=== PATIENT | male | born 1955 | race African-American/Black ===

== ENCOUNTER 2016-11-23 07:58 | Day surgery (SDC) | payer MEDICARE ==
[2016-11-23] MEDS ORDERED: OXYCODONE-ACETAMINOPHEN 5-325 MG TABLET ONE (08:39)
[2016-11-23] MEDS ORDERED: LIDOCAINE 0.5% INJ-PF (5 MG/ML) 50 ML SDV ONE (08:59)
[2016-11-23] MEDS ORDERED: DIAZEPAM 5 MG TABLET PO ONE (09:00)
[2016-11-23] MEDS ORDERED: FENTANYL CITRATE INJ/PF 100 MCG/2 ML AMPUL ONE (09:20)
[2016-11-23] MEDS ORDERED: MIDAZOLAM 2 MG/2 ML INJ ONE (09:20)
[2016-11-23] MEDS ORDERED: HEPARIN SOD (PORCINE) 5,000 UNIT/ML 1 ML SYRINGE ONE (09:21)
--- NOTE | 2016-11-23 11:28 | PDOC DISCHARGE SUMMARY ---
Discharge Summary (SDC) - Discharge Final Diagnosis: #1 malfunctioning AV fistula, right forearm radial to cephalic. #2 end-stage renal disease on hemodialysis. #3 hypertension. Date of Surgery: 11/23/16 Discharge Date: 11/23/16 Condition: Good Treatment or Instructions: #1 activities within moderation encouraged. #2 follow up in my office by appointment in about 1 month. Call for appointment. #3 the wounds covered clean and dry until removed and dialysis. #4 hold off on school/work until evaluation in office. #5 medications per medication reconciliation sheet. #6 discharge from ambulatory when ASU criteria met. #7 renal diet, as tolerated. Report the Following to Your Physician Immediately: Unusual Bleeding
[2016-11-23 12:17] VITALS: BP 153/106
--- NOTE | 2016-11-23 14:11 | PDOC H&P ---
General Chief Complaint: The patient is admitted for intervention in his arteriovenous fistula. Reduced flows have been appreciated on hemodialysis. - Current Medications/Allergies Home Medications: Amlodipine Besylate [Norvasc 10 mg Tablet] 10 mg PO QHS 08/14/12 Cinacalcet HCl [Sensipar 30 mg Tablet] 60 mg PO DAILY 03/20/13 Irbesartan [Avapro] 150 mg PO QHS 03/17/15 Lanthanum Carbonate [Fosrenol] 1,500 mg PO TID 03/17/15 Allergies/Adverse Reactions: lisinopril [Lisinopril] Allergy (Unknown, Verified 05/08/13 16:39) Past Medical History Cardiac Medical History: Reports: Hypertension Denies: Coronary Artery Disease, Myocardial Infarction Pulmonary Medical History: Denies: Asthma, Bronchitis, Chronic Obstructive Pulmonary Disease (COPD), Pneumonia - "TOUCH OF THE PNEUMONIA", Tuberculosis Neurological Medical History: Denies: Seizures Renal/ Medical History: Reports: End Stage Renal Disease Musculoskeltal Medical History: Denies: Arthritis Hematology: Denies: Anemia Past Surgical History Past Surgical History: Reports: Vascular Surgery - dialysis fistula Denies: Pacemaker Family History Family History: Reviewed & Not Pertinent Parental Family History Reviewed: No Children Family History Reviewed: No Sibling(s) Family History Reviewed.: No Social History Smoking Status: Current Every Day Smoker Frequency of Alcohol Use: None Hx Recreational Drug Use: No Hx Prescription Drug Abuse: No Physical Exam Vital Signs: Temp Pulse Resp BP Pulse Ox 98.3 F 74 18 153/106 H 100 11/23/16 12:15 11/23/16 12:15 11/23/16 12:15 11/23/16 12:15 11/23/16 12:15 Intake & Output 11/22/16 11/23/16 11/24/16 06:59 06:59 06:59 Weight 79.379 kg Additional comments: Constitutional: A well-developed well-nourished -[place] gentleman. No acute distress. Eyes: Mucous membranes pink and moist, sclerae anicteric, pupils react normally. Respiratory: No shortness of breath or wheezing. Breath sounds are normal and equal. Cardiac: Heart sounds normal, no murmurs, no increased JVP. Peripheral edema. Extremities: Upper extremities shows normal range of movement and pulses. The right arm has a cephalic to radial fistula which is aneurysmal. Bruit normal. Soft to palpation. Psychiatric: judgment, memory, insight seem normal. Mood is normal, appropriate and pleasant. Impression/Plan Impression: #1 malfunctioning AV fistula, right forearm cephalic to radial. #2 end-stage renal disease on hemodialysis. #3 hypertension. Plan: The plan in this patient is to access the fistula do an angiogram and possible angioplasty. Risks include infection, bleeding, heart, lung complications, loss of fistula. The patient is agreeable to proceed.
--- NOTE | 2016-11-23 14:15 | Operative Report ---
Operative Report DATE OF SURGERY: 11/23/16 PREOPERATIVE DIAGNOSIS: #1 malfunctioning AV fistula, right forearm cephalic to radial. #2 end-stage renal disease on hemodialysis. #3 hypertension. POSTOPERATIVE DIAGNOSIS: #1 malfunctioning AV fistula, right forearm cephalic to radial. #2 end-stage renal disease on hemodialysis. #3 hypertension. OPERATION: #1 needle access into fistula. #2 angioplasty. #3 angiogram and interpretation. SURGEON: KARON PARMAR INFANT LEAD TEACHER: none ANESTHESIA: Moderate Sedation TISSUE REMOVED OR ALTERED: Not applicable. COMPLICATIONS: None ESTIMATED BLOOD LOSS: 5 mL. INTRAOPERATIVE FINDINGS: Of a well-founded right arm radiocephalic fistula. Very well dilated. Soft after the first 4 cm suggesting a stenosis which in fact was found at about 4 cm. Angioplasty vastly improve the quality of the fistula. Stenosis relatively modest at about 60% of the adjacent lumen. Much improved with angioplasty. PROCEDURE: PROCEDURE: After verifying the procedure and having obtained informed consent, the patient's right forearm was prepared with Chlorhexidine and draped out with sterile linen. Local anesthesia infiltrated. Percutaneous access into the fistula ,[ antegrade], obtained about [2 cm] from the arteriovenous anastomosis using a micro puncture needle followed by micro puncture wire and then a micro puncture catheter. Angiogram demonstrated the aforementioned findings. Angioplasty was elected. A 0.035 Henderson wire was inserted, and over this, a 6 Solomon Islander short introducer was placed, this was followed by a [6] angioplasty balloon . Angioplasty was serially done from the culprit area down to the introducer. Inflating up to 14 atmospheres for 1-2 minutes at a time.]. Completion angiogram demonstrated [satisfactory result]. The instrumentation was now withdrawn over pressure for 10 minutes. Dressings applied, procedure concluded. Exposure time: 0.4 minutes Radiation: 31 Faustin per centimeter squared Contrast: 25 mm of Isovue-M 300, low osmolality. DICTATING PHYSICIAN: KARON MELO M.D. cc: KARON MELO M.D. ([id number]) >>
== END 2016-11-23 12:15 | disposition home or self-care (01) ==
LOC: CCL 07:58
PROVIDERS: ATTEND Surgery
PROC: 057D3DZ Dilation of Right Cephalic Vein with Intraluminal Device, Percutaneous Approach (ICD-10-PCS; principal; 2016-11-23)
DX: T82.858A Stenosis of other vascular prosthetic devices, implants and grafts, initial encounter (principal); Y83.2 Surgical operation with anastomosis, bypass or graft as the cause of abnormal reaction of the patient, or of later complication, without mention of misadventure at the time of the procedure; I12.0 Hypertensive chronic kidney disease with stage 5 chronic kidney disease or end stage renal disease; N18.6 End stage renal disease; F17.210 Nicotine dependence, cigarettes, uncomplicated; Z99.2 Dependence on renal dialysis; Z88.8 Allergy status to other drugs, medicaments and biological substances; Z79.899 Other long term (current) drug therapy
CPT/HCPCS: 36902; 36901; C1752; C1725; C1894; Q9967; C1769; J2250; J1644 ×2; A9270 ×2; J3010; J3490

== ENCOUNTER 2018-07-26 02:17 | Emergency (ER) | payer MEDICARE, MEDICAID ==
[2018-07-26] MEDS ORDERED: LIDOCAINE 1% INJ-PF (10 MG/ML) 30 ML SDV INJ ONE (02:57)
--- NOTE | 2018-07-26 03:08 | ER Document Report ---
ED General - General Mode of Arrival: Ambulatory Information source: Patient TRAVEL OUTSIDE OF THE [place] IN LAST 30 DAYS: No - General Chief Complaint: Abscess Stated Complaint: POSSIBLE SKIN SORES Time Seen by Provider: 07/26/18 02:38 Notes: Patient is a 8-year-old male who presents to the emergency department with a 1-1 /2-week history of abscesses 2 of which are on his scrotum and one that is on his anterior neck. He denies any fever, chills, body aches. He states that he does have localized pain in the areas of his abscesses, but denies any radiation of his pain. The 2 abscesses on his scrotum have drained a small amount of "white" drainage on their own, per patient. (MARI HERNANDEZ) - Related Data Allergies/Adverse Reactions: lisinopril [Lisinopril] Allergy (Unknown, Verified 05/08/13 16:39) Past Medical History - General Information source: Patient - Social History Smoking Status: Current Some Day Smoker Frequency of alcohol use: None Drug Abuse: None Lives with: Family Family History: Reviewed & Not Pertinent Patient has suicidal ideation: No Patient has homicidal ideation: No - Past Medical History Cardiac Medical History: Reports: Hx Hypertension Denies: Hx Coronary Artery Disease, Hx Heart Attack Pulmonary Medical History: Denies: Hx Asthma, Hx Bronchitis, Hx COPD, Hx Pneumonia - "TOUCH OF THE PNEUMONIA", Hx Tuberculosis Neurological Medical History: Denies: Hx Cerebrovascular Accident, Hx Seizures Renal/ Medical History: Reports: Hx End Stage Renal Disease. Denies: Hx Peritoneal Dialysis - Hemodialysis due today 0700 Musculoskeletal Medical History: Denies Hx Arthritis Past Surgical History: Reports: Hx Vascular Surgery - dialysis fistula. Denies : Hx Pacemaker - Immunizations Hx Diphtheria, Pertussis, Tetanus Vaccination: Yes Review of Systems - Review of Systems Constitutional: See HPI EENT: No symptoms reported Cardiovascular: No symptoms reported Respiratory: No symptoms reported Gastrointestinal: No symptoms reported Genitourinary: No symptoms reported Male Genitourinary: See HPI Musculoskeletal: No symptoms reported Skin: See HPI Hematologic/Lymphatic: No symptoms reported Neurological/Psychological: No symptoms reported Physical Exam - General General appearance: Appears well - Respiratory Respiratory status: No respiratory distress Breath sounds: Normal - Genitourinary Scrotum: Swelling - Skin Skin Temperature: Warm Skin Moisture: Dry Skin Color: Normal, Ashen Skin irregularity: Abscess - Anterior neck; 2 noted on right scrotum - Vital signs Vitals: Temp Pulse Resp BP Pulse Ox 98.6 F 93 16 142/91 H 98 07/26/18 02:26 07/26/18 02:26 07/26/18 02:26 07/26/18 02:26 07/26/18 02:26 Course - Re-evaluation Re-evalutation: 07/26/18 03:00 Patient is a 62-year-old male with a past medical history of dialysis, who presents to the emergency department with multiple abscesses, one in which is on his anterior neck and 2 others that are on his scrotum. His abscesses started a week and a half ago. He denies fever, chills, or malaise. 07/26/18 03:[address] Bethea in regards to his scrotal swelling and abscesses. He will assess the patient and determine if Dr. Gaston, the surgicalist needs to be consulted. 07/26/18 03:38 Dr. Bethea and myself at bedside to drain abscesses. Patient tolerated procedure well. Verbal instructions for patient to return to the emergency department tomorrow for follow-up. (MARI HERNANDEZ) 07/26/18 05:22 Patient has 2 small sores on the scrotal region. 1 of the sores is less than 1 cm in diameter in the usual have just a small purulent core. Was able to do the roof both of these with an 18-gauge needle. Before doing this I did clean the areas with chlorhexidine. We then irrigated there is saline. There is no further incision or drainage at this time as there is no further abscess on exam. He also had a small one on his neck which was also removed with a 18- gauge needle also has just a small pustule. We will have the patient return tomorrow for reevaluation of the scrotal region. We did place Xeroform gauze over the wounds. Patient to return to ER sooner if he has increasing swelling, fevers, or feels unwell. Patient agrees with plan and will be discharged home. Dictation of this chart was performed using voice recognition software; therefore, there may be some unintended grammatical errors. (RIVAS BETHEA) - Vital Signs Vital signs: Temp Pulse Resp BP Pulse Ox 98.5 F 90 18 142/82 H 99 07/26/18 04:11 07/26/18 04:11 07/26/18 04:11 07/26/18 04:11 07/26/18 04:11 Discharge - Discharge Clinical Impression: ESRD on dialysis, Abscess of multiple sites Condition: Stable Disposition: HOME, SELF-CARE Instructions: Abscess ([facility]), MRSA Cellulitis ([facility]) Additional Instructions: Please follow-up in the emergency department tomorrow to have your abscesses reevaluated and dressings changed. Please take all your antibiotics as prescribed and finish them. If you feel your abscesses are getting worse, please return to the emergency department immediately. If you develop a fever, body aches, chills, please return to the emergency department as soon as possible. Prescriptions: Cephalexin Monohydrate [Keflex 500 mg Capsule] 500 mg PO Q6H 7 Days #28 capsule Sulfamethoxazole/Trimethoprim [Bactrim Ds Tablet] 1 each PO BID 7 Days #14 tablet Referrals: Magy ROSARIO MD [Primary Care Provider] - Follow up as needed
[2018-07-26 04:13] VITALS: BP 142/82
== END 2018-07-26 04:14 | disposition home or self-care (01) ==
LOC: ER 02:17
DX: N49.2 Inflammatory disorders of scrotum (principal); L02.11 Cutaneous abscess of neck; I12.0 Hypertensive chronic kidney disease with stage 5 chronic kidney disease or end stage renal disease; N18.6 End stage renal disease; Z99.2 Dependence on renal dialysis; F17.200 Nicotine dependence, unspecified, uncomplicated; Z88.8 Allergy status to other drugs, medicaments and biological substances
CPT/HCPCS: 99283

== ENCOUNTER 2018-07-27 03:58 | Emergency (ER) | payer MEDICARE, MEDICAID ==
--- NOTE | 2018-07-27 04:22 | ER Document Report ---
ED General - General Chief Complaint: Wound Recheck Stated Complaint: WOUND CHECK Time Seen by Provider: 07/27/18 04:13 Notes: Patient is a pleasant 62-year-old male who presents with complaint of wanting reevaluation for his size abscesses. I saw the patient yesterday in size at 2 abscesses on his scrotal region as well as one in his lower neck. Encouraged him to return today for reevaluation as the patient did not follow instructions appropriately. He says he has been doing well. He has not had any further concerns. He has not had any increasing swelling. He says he is feeling improved. He has filled the prescription for his antibiotic and has been taking it. TRAVEL OUTSIDE OF THE [place] IN LAST 30 DAYS: No - Related Data Allergies/Adverse Reactions: lisinopril [Lisinopril] Allergy (Unknown, Verified 07/27/18 04:00) Past Medical History - Social History Smoking Status: Unknown if Ever Smoked Frequency of alcohol use: None Drug Abuse: None Family History: Reviewed & Not Pertinent - Past Medical History Cardiac Medical History: Reports: Hx Hypertension Denies: Hx Coronary Artery Disease, Hx Heart Attack Pulmonary Medical History: Denies: Hx Asthma, Hx Bronchitis, Hx COPD, Hx Pneumonia - "TOUCH OF THE PNEUMONIA", Hx Tuberculosis Neurological Medical History: Denies: Hx Cerebrovascular Accident, Hx Seizures Renal/ Medical History: Reports: Hx End Stage Renal Disease. Denies: Hx Peritoneal Dialysis - Hemodialysis due today 0700 Musculoskeletal Medical History: Denies Hx Arthritis Past Surgical History: Reports: Hx Vascular Surgery - dialysis fistula. Denies : Hx Pacemaker - Immunizations Hx Diphtheria, Pertussis, Tetanus Vaccination: Yes Review of Systems - Review of Systems Notes: My Normal Review Basic REVIEW OF SYSTEMS: CONSTITUTIONAL : Denies fever, chills, or sweats. Denies recent illness. EENT: Small abscess at base of anterior neck. GASTROINTESTINAL: Denies abdominal pain. Denies nausea, vomiting, or diarrhea. GENITOURINARY: 2 small abscesses over scrotal region. SKIN: Denies rash or skin lesions. NEUROLOGICAL: Denies sensory or motor loss. ALL OTHER SYSTEMS REVIEWED AND NEGATIVE. Physical Exam - Vital signs Vitals: Temp Pulse Resp BP Pulse Ox 98.5 F 91 16 131/81 H 99 07/27/18 04:09 07/27/18 04:09 07/27/18 04:09 07/27/18 04:09 07/27/18 04:09 - Notes Notes: General Appearance: Well nourished, alert, cooperative, no acute distress, no obvious discomfort. Well-appearing. Vitals: reviewed, See vital signs table. Eyes: PERRL, EOMI, Conjuctiva clear Neck: Supple, very small abscess over the base of the anterior neck which has been deroofed yesterday. There is no ongoing purulent drainage. There is no increasing swelling. Appears to be healing appropriate. Genital: 2 small abscesses on the scrotal region are healing appropriately without further purulent drainage. No surrounding erythema or spreading redness. Skin: warm, dry, appropriate color, no rash Neuro: speech clear, oriented x 3, normal affect, responds appropriately to questions. Course - Re-evaluation Re-evalutation: 07/27/18 06:34 Patient's sized abscesses are healing appropriately and patient looks well. We will have him continue take doxycycline. I informed him to clean his wounds with soap and water twice a day and place any bandages over them. Patient to return to ER if he has recurrent purulent drainage, spreading redness or swelling, fevers, or if he feels his symptoms are worsening in any way. Patient agrees with plan will be discharged home. Dictation of this chart was performed using voice recognition software; therefore, there may be some unintended grammatical errors. - Vital Signs Vital signs: Temp Pulse Resp BP Pulse Ox 98.7 F 90 20 128/89 H 99 07/27/18 04:41 07/27/18 04:41 07/27/18 04:41 07/27/18 04:41 07/27/18 04:41 Discharge - Discharge Clinical Impression: Abscess of multiple sites Condition: Good Disposition: HOME, SELF-CARE Additional Instructions: Please clean the incised abscesses twice a day with soap and water and apply new bandaids. Continue to take your antibiotic as prescribed. Please return to the ER immediately if you develop fevers, increasing swelling, spreading redness , or feel unwell. Referrals: Magy ROSARIO MD [Primary Care Provider] - 07/31/18
[2018-07-27 04:43] VITALS: BP 128/89
== END 2018-07-27 04:43 | disposition home or self-care (01) ==
LOC: ER 03:58
DX: L02.11 Cutaneous abscess of neck (principal); N49.2 Inflammatory disorders of scrotum
CPT/HCPCS: 99282

== ENCOUNTER → 2020-04-08 | Outpatient (CLI) | payer MEDICAID, MEDICARE ==
--- NOTE | 2020-04-08 18:26 | XCELERA REPORT ---
[address] [address] Transthoracic Echocardiogram Report Name: RAQUEL SCHWARTZ Age: 64 yrs Gender: Male : 1955 Patient Status: Outpatient Patient Location: [facility] Study Date: 04/08/2020 09:14 AM Height: 71 in Weight: 182 lb BSA: 2.0 m2 Reason For Study: HYPOTENSION Ordering Physician: ROMULO DIETRICH Performed By: Patrice Caldreon Interpretation Summary Minimal posterior pericardial effusion. Mild aortic root calcification, no enlargement. Mild nonstenotic calcific aortic valvular disease? 3 cusps, with minimal AR, no LV enlargement. Severe mitral annular calcification with thickened anterior and posterior mitral leaflets, no stenosis,, No MVP, mild mitral regurgitation. No left atrial enlargement, JASON is 27. LV shows apical hypertrophy, LVEF is 65% with moderate concentric basal LV hypertrophy 15-16 mm, with left ventricular diastolic dysfunction stage I. Hypokinesis is seen in the basal anterior wall and basal lateral wall only. There is no LV enlargement. No LVOT obstruction. Right heart is poorly seen, no suspicion of RV or RA enlargement, TAPSE suggests normal RE function. Mild TR with RVSP less than 30, ie, no pulmonary hypertension. This patient's LV contractility is hyperdynamic, therefore suggest hypovolemia as cause for his hypotension while on dialysis. MMode/2D Measurements & Calculations RVDd: 3.0 cm LVIDd: 5.3 cm FS: 43.2 % Ao root diam: 3.5 cm IVSd: 1.1 cm LVIDs: 3.0 cm EDV(Teich): Ao root area: LVPWd: 1.0 cm 133.4 ml ESV(Teich): 34.8 ml9.9 cm2 LA dimension: 5.2 cm EF(Teich): 73.9 % LVLd ap4: 8.4 cm SV(MOD-sp4): EDV(MOD-sp4): 48.0 ml 85.0 ml LVLs ap4: 7.5 cm ESV(MOD-sp4): 37.0 ml EF(MOD-sp4): 56.5 % Doppler Measurements & Calculations MV E max loki: MV P1/2t max loki: Ao V2 max: LV V1 max P.4 cm/sec 79.9 cm/sec 156.7 cm/sec 4.4 mmHg MV A max loki: MV P1/2t: 105.8 msec Ao max P.8 mmHgLV V1 max: 121.9 cm/sec 104.6 cm/sec MV E/A: 0.70 MVA(P1/2t): 2.1 cm2 MV dec slope: 221.3 cm/sec2 MV dec time: 0.28 sec PA V2 max: TR max loki: MV P1/2t-pr_phl: 112.0 cm/sec 247.0 cm/sec 105.8 msec PA max P.0 mmHgTR max P.4 mmHg I WMSI = 1.13 % Normal = 88 Segments Size X - Cannot 1 - Normal 2 - 3 - Akinetic4 - 1-2 small Interpret Hypokinetic Dyskinetic 3-5 moderate 5 - 6-14 large Aneurysmal 15-16 diffuse : ROMULO DIETRICH Andre
== END ==
LOC: SP 08:25
PROVIDERS: ATTEND Internal Medicine Nephrology
DX: I95.89 Other hypotension (principal)
CPT/HCPCS: 93306

== ENCOUNTER 2020-05-24 15:42 | Emergency (ER) | payer MEDICARE, MEDICAID ==
--- NOTE | 2020-05-24 17:09 | ER Document Report ---
ED Medical Screen (RME) - General Stated Complaint: ABSCESS Time Seen by Provider: 05/24/20 17:05 Primary Care Provider: ROMULO DIETRICH MD [Primary Care Provider] - Follow up as needed Notes: HPI: 64-year-old male who is a dialysis patient presenting for an abscess on the scrotum. States it is been present for 3 to 4 days progressively worsening. States he had one in this region previously that had to be drained. PHYSICAL EXAMINATION: There are career development coordinator present. exam shows an indurated mildly fluctuant area measuring 3 cm x 2 cm over the central anterior scrotum at the base of the penis I have greeted and performed a rapid initial assessment of this patient. A comprehensive ED assessment and evaluation of the patient, analysis of test results and completion of medical decision making process will be conducted by an additional ED providers. TRAVEL OUTSIDE OF THE [place] IN LAST 30 DAYS: No - Related Data Allergies/Adverse Reactions: lisinopril [Lisinopril] Allergy (Unknown, Verified 05/24/20 17:04) Past Medical History - Past Medical History Cardiac Medical History: Reports: Hx Hypertension Denies: Hx Coronary Artery Disease, Hx Heart Attack Pulmonary Medical History: Denies: Hx Asthma, Hx Bronchitis, Hx COPD, Hx Pneumonia - "TOUCH OF THE PNEUMONIA", Hx Tuberculosis Neurological Medical History: Denies: Hx Cerebrovascular Accident, Hx Seizures Renal/ Medical History: Reports: Hx End Stage Renal Disease. Denies: Hx Peritoneal Dialysis - Hemodialysis due today 0700 Musculoskeltal Medical History: Denies Hx Arthritis Past Surgical History: Reports: Hx Vascular Surgery - dialysis fistula. Denies: Hx Pacemaker - Immunizations Hx Diphtheria, Pertussis, Tetanus Vaccination: Yes Physical Exam - Vital signs Vitals: Temp Pulse Resp BP Pulse Ox 98.6 F 114 H 20 111/64 96 05/24/20 15:47 05/24/20 15:47 05/24/20 15:47 05/24/20 15:47 05/24/20 15:47 Course - Vital Signs Vital signs: Temp Pulse Resp BP Pulse Ox 98.6 F 114 H 20 111/64 96 05/24/20 15:47 05/24/20 15:47 05/24/20 15:47 05/24/20 15:47 05/24/20 15:47 Doctor's Discharge - Discharge Referrals: ROMULO DIETRICH MD [Primary Care Provider] - Follow up as needed
[2020-05-24] MEDS ORDERED: CEPHALEXIN 500 MG CAPSULE PO ONE (19:59)
[2020-05-24] MEDS ORDERED: SULFAMETHOXAZOLE/TRIMETHOPRIM 800-160 MG TABLET PO ONE (19:59)
--- NOTE | 2020-05-24 20:03 | ER Document Report ---
ED Skin Rash/Insect Bite/Abscs - General Chief Complaint: Abscess Stated Complaint: ABSCESS Time Seen by Provider: 05/24/20 17:05 Primary Care Provider: ROMULO DIETRICH MD [Primary Care Provider] - Follow up as needed Notes: Patient is a 64-year-old male who presents emergency department with a chief complaint of a left scrotal abscess. Patient states that his symptoms started about 4 to 5 days ago. States that he has had some purulent drainage from the area. Denies any fever, body aches, or chills.Patient has a history of end- stage renal disease, on hemodialysis. He also has a history of hypertension. D enies any diabetes history. TRAVEL OUTSIDE OF THE [place] IN LAST 30 DAYS: No - Related Data Allergies/Adverse Reactions: lisinopril [Lisinopril] Allergy (Unknown, Verified 05/24/20 17:04) Past Medical History - Social History Smoking Status: Former Smoker Family History: Reviewed & Not Pertinent Patient has homicidal ideation: No - Past Medical History Cardiac Medical History: Reports: Hx Hypertension Denies: Hx Coronary Artery Disease, Hx Heart Attack Pulmonary Medical History: Denies: Hx Asthma, Hx Bronchitis, Hx COPD, Hx Pneumonia - "TOUCH OF THE PNEUMONIA", Hx Tuberculosis Neurological Medical History: Denies: Hx Cerebrovascular Accident, Hx Seizures Renal/ Medical History: Reports: Hx End Stage Renal Disease. Denies: Hx Peritoneal Dialysis - Hemodialysis due today 0700 Musculoskeletal Medical History: Denies Hx Arthritis Past Surgical History: Reports: Hx Vascular Surgery - dialysis fistula. Denies: Hx Pacemaker - Immunizations Hx Diphtheria, Pertussis, Tetanus Vaccination: Yes Review of Systems - Review of Systems Notes: REVIEW OF SYSTEMS: CONSTITUTIONAL : Denies recent illness. Denies recent unintentional weight loss. Denies fever, chills, or sweats. EENT: Denies eye, ear, throat, or mouth pain, discharge, or symptoms. Denies nasal or sinus congestion. CARDIOVASCULAR: Denies chest pain. RESPIRATORY: Denies shortness of breath, cough, congestion, difficulty breathing, or wheezing. GASTROINTESTINAL: Denies nausea, vomiting, and diarrhea. Denies abdominal pain. Denies constipation. GENITOURINARY: Denies difficulty urinating, burning, blood in urine, urgency or frequency. See HPI. MUSCULOSKELETAL: Denies neck and back pain. Denies joint pain or swelling. SKIN: Denies rash, itchiness, or lesions HEMATOLOGIC : Denies easy bruising or bleeding. LYMPHATIC: Denies swollen, painful, enlarged glands. NEUROLOGICAL: Denies no numbness or tingling denies weakness. Denies headache. Denies altered mental status. Denies alteration in speech. PSYCHIATRIC: Denies stress, anxiety, alteration in sleep patterns, or depression. All other systems reviewed and negative. Physical Exam - Vital signs Vitals: Temp Pulse Resp BP Pulse Ox 98.6 F 114 H 20 111/64 96 05/24/20 15:47 05/24/20 15:47 05/24/20 15:47 05/24/20 15:47 05/24/20 15:47 - Notes Notes: PHYSICAL EXAMINATION: GENERAL: Appears well, healthy, well-nourished, no acute distress. HEAD: Normocephalic, atraumatic. EYES: PERRL, conjunctiva normal, all extraocular movements intact, sclera nonicteric ENT: Moist mucous membranes. NECK: Supple, no noticeable swelling, redness, rash. Normal range of motion. ABDOMEN: Normoactive bowel sounds. Soft, nontender, no guarding, no rebound tenderness, and no masses palpated. EXTREMITIES: Normal strength and range of motion, no pitting or edema. No cyanosis. NEUROLOGICAL: Moves all extremities upon command. Strength 5/5 in all extremities. PSYCH: Normal mood, normal affect. SKIN: Warm, dry. No rash, lesions, ulcerations noted. Normal skin turgor. Abscess noted to testicular area. Purulent drainage from the area. Course - Re-evaluation Re-evalutation: 05/24/20 20:00 Differential diagnosis includes but normal limited to: abscess, dermoid cyst, sebaceous cyst, furnucle, or others. 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 Based on patient's physical exam and history, this is an abscess. It was drained in the ER. There is some surrounding cellulitis. I do not believe the patient has underlying necrotizing fasciitis. Culture was sent. Based on patient's physical exam and these factors, they will be treated with antibiotics. Follow-up precautions were given. Verbal discharge instructions were given to the patient. They verbalized understanding. They are stable for discharge. - Vital Signs Vital signs: Temp Pulse Resp BP Pulse Ox 98.6 F 89 18 133/89 H 100 05/24/20 15:47 05/24/20 20:17 05/24/20 20:17 05/24/20 20:17 05/24/20 20:17 Procedures - Incision and Drainage Testicle Type: Simple I&D procedure: Chlorprep applied Incision Method: Incision made with needle Amount/type of drainage: 2-3 mls/purulent Discharge - Discharge Clinical Impression: Scrotal abscess Cellulitis Qualifiers: Site of cellulitis: unspecified site Qualified Code(s): L03.90 - Cellulitis, unspecified Condition: Stable Disposition: HOME, SELF-CARE Instructions: Abscess ([facility]), Cephalexin ([facility]), Post Incision and Drainage, Trimethoprim-Sulfa ([facility]) Additional Instructions: You were seen today in the emergency department for an abscess to your scrotum. The abscess was punctured to help with drainage. You can change the dressing twice a day. Make sure you clean the area with soap and water. Take your antibiotics as prescribed. Follow-up with your regular doctor in regards to this visit. Prescriptions: Sulfamethoxazole/Trimethoprim [Bactrim 400-80 mg Tablet] 1 each PO BID #14 tablet Cephalexin Monohydrate [Keflex 500 mg Capsule] 500 mg PO Q6H #28 capsule Referrals: ROMULO DIETRICH MD [Primary Care Provider] - Follow up as needed
[2020-05-24 20:18] VITALS: BP 133/89
== END 2020-05-24 20:24 | disposition home or self-care (01) ==
LOC: ER 15:42
PROC: 0V9 Male Reproductive System, Drainage (ICD-10-PCS; principal; 2020-05-24)
DX: N49.2 Inflammatory disorders of scrotum (principal); L03.90 Cellulitis, unspecified; I10 Essential (primary) hypertension; Z87.891 Personal history of nicotine dependence; Z88.8 Allergy status to other drugs, medicaments and biological substances
CPT/HCPCS: 99283; 87070; 87205; 87075; 87077; 87186; 54700; A9270 ×2